=== PATIENT | female | born 1980 | race Two or more races ===

== ENCOUNTER 2018-10-24 15:20 | Inpatient (IN) | payer BC ==
[~2018-10-24] VITALS: Ht 160 cm; Wt 94.0 kg
[2018-10-24 16:11] LABS: Basophils # (auto) 0.1 uL; Basophils % (auto) 0.8 % (0.0-2.0); Eosinophils # (auto) 0.1 uL; Eosinophils % (auto) 0.9 % (0.0-7.0); Hematocrit 33.7 % (36.0-46.0); Hemoglobin 11.1 g/dL (12.2-16.2); Lymphocytes # (auto) 1.9 uL; Lymphocytes % (auto) 13.6 % (10.0-50.0); Mean Corpuscular Hemoglobin 27.4 pg (28.0-32.0); Mean Corpuscular Hgb Conc. 32.9 g/dL (32.0-36.0); Mean Corpuscular Volume 83.3 fL (80.0-100.0); Monocytes % (auto) 6.9 % (0.0-12.0); Neutrophils # (auto) 10.8 uL; Neutrophils % (auto) 77.8 % (37.0-80.0); Nucleated Red Blood Cells % 0.1 %; Platelet Count (auto) 323 10^3/uL (140-450); Red Blood Cells 4.05 10^6/uL (4.0-5.20); Red Cell Distribution Width 13.7 % (11.8-14.3); White Blood Cell 13.8 10^3/uL (4.4-10.8)
[2018-10-24 16:27] LABS: Alanine Aminotransferase 26 U/L (13-56); Albumin 2.9 g/dL (3.4-5.0); Anion Gap 9 (5-15); Aspartate Aminotransferase 6 U/L (15-37); BUN/Creatinine Ratio 20.6; Blood Urea Nitrogen 13 mg/dL (7-18); Calcium 8.4 mg/dL (8.5-10.1); Carbon Dioxide 20 mmol/L (21-32); Chloride 111 mmol/L (98-107); GFR African American 137 mL/min; GFR Non-African American 113 mL/min; Glucose 277 mg/dL (74-106); Potassium 3.9 mmol/L (3.5-5.1); Sodium 140 mmol/L (136-145)
[2018-10-24 16:32] LABS: Alkaline Phosphatase 104 U/L (45-117); Bilirubin, Total 1.2 mg/dL (0.2-1.0); Total Protein 6.5 g/dL (6.4-8.2)
[2018-10-24] MEDS ORDERED: PROMETHAZINE HCL 25 MG/ML 1ML IV ONE (17:45)
[2018-10-24] MEDS ORDERED: HYDROmorphone HCL 2 MG/ML VL IV ONE (17:45)
[2018-10-24] MEDS ORDERED: IOHEXOL 350 MG/ML 100ML IJ ONE (17:54)
[2018-10-24] MEDS ORDERED: ALBUTEROL SULF 2.5 MG/0.5ML(0.5%) NEB SOLN NEB ONE (20:45)
[2018-10-24] MEDS ORDERED: SODIUM CHLORIDE 0.9% 1,000 ML IV ONE (20:45)
[2018-10-24] MEDS ORDERED: IPRATROPIUM BROM 0.5 MG/2.5ML INH SOL NEB ONE (20:45)
[2018-10-24] MEDS ORDERED: MORPHINE SULF INJ 2 MG/ML SYRINGE 1ML IV PRN (22:30)
[2018-10-24] MEDS ORDERED: NITROGLYCERIN 0.4 MG SL TAB SL PRN (22:30)
[2018-10-24] MEDS ORDERED: ONDANSETRON HCL 4 MG/2 ML VIAL IV PRN (22:30)
[2018-10-24] MEDS ORDERED: DEXTROSE (50%) 50ML SYRG IV PRN (22:30)
[2018-10-24 22:49] VITALS: BP 128/83
[2018-10-24] MEDS ORDERED: HYDROcodone-ACET 5/325MG TAB ONE (23:25)
[2018-10-24] MEDS ORDERED: cefTRIAXone 1GM/50ML D5W 50 ML IV SCH (23:30)
[2018-10-24] MEDS ORDERED: cefTRIAXone 1GM/50ML D5W 50 ML IV ONE (23:43)
[2018-10-24] MEDS ORDERED: AZITHROMYCIN 500MG/ 250ML 250 ML IV ONE (23:56)
--- NOTE | 2018-10-25 01:00 | NUR ---
Telemetry admit from [facility] admitted to Telemetry unit. patient oriented to [place], primary RN, unit, room, bed, and unit policies regarding patient care and visiting hours. Patient now on continuous telemetry monitoring, tele box # [id number] and telemetry reading on arrival to unit is ST. Patient placed on bedside oxygen, weighed by bedscale and encouraged to call if they need something. All questions and concerns addressed, patient verbalized understanding.
[2018-10-25] MEDS: ACETYLCYSTEINE 20%(200MG/ML) SOL 4ML NEB SCH ×6 (02:00→23:21)
[2018-10-25] MEDS: ALBUTEROL SULF 2.5 MG/0.5ML(0.5%) NEB SOLN NEB SCH ×6 (02:00→23:21)
[2018-10-25] MEDS: IPRATROPIUM BROM 0.5 MG/2.5ML INH SOL NEB SCH ×6 (02:00→23:21)
[2018-10-25] MEDS ORDERED: ACETYLCYSTEINE 20%(200MG/ML) SOL 4ML ONE ×2 (02:43→05:19)
[2018-10-25] MEDS ORDERED: IPRATROPIUM BROM 0.5 MG/2.5ML INH SOL ONE ×2 (02:43→05:18)
[2018-10-25] MEDS ORDERED: ALBUTEROL SULF 2.5 MG/0.5ML(0.5%) NEB SOLN ONE ×2 (02:43→05:18)
--- NOTE | 2018-10-25 03:30 | NUR ---
WOUND PHOTOS TAKEN
[2018-10-25] MEDS ORDERED: ACCU-CHEK COMFORT CURVE STRIP VI SCH ×2 (07:00→12:00)
[2018-10-25] MEDS ORDERED: InsuLIN REG 1unit/0.01ml Soln (100units/ml) SC SCH ×2 (07:00→12:00)
--- NOTE | 2018-10-25 07:00 | NUR ---
Admission completed placed in hard chart.
[2018-10-25] MEDS: HYDROcodone-ACET 5/325MG TAB PO PRN ×3 (07:07→21:28)
[2018-10-25 07:13] LABS: BUN/Creatinine Ratio 14.3; Calcium 7.8 mg/dL (8.5-10.1)
--- NOTE | 2018-10-25 07:30 | NUR ---
Opening Shift Note Received report from Jaime VOGT. Assumed care of patient, awake and alert. No S/S of distress/SOB. Reported generalized pain. NOted accordion tubes attached to each groin, draining minimal amount of sanguinous fluid, noted some leaking. Noted 3 puncture wounds also on back with min-mod clear drainage. Instructed on POC and to call for assist PRN, will continue to monitor for changes Q1hr and PRN.
[2018-10-25 08:00] VITALS: BP 123/74
--- NOTE | 2018-10-25 08:25 | NUR ---
Dr. Brar at bedside. Pulmonology consult done. Received verbal order to educate patient on how to use incentive spirometry every 1-2 hours, and do percussion per RT protocol.
[2018-10-25 09:00] VITALS: BP 123/74
--- NOTE | 2018-10-25 09:24 | NUR ---
INSTRUCTED HOW TO USE INCENTIVE SPIROMETRY. PATIENT DID RETURN DEMONSTRATION.
[2018-10-25] MEDS ORDERED: AZITHROMYCIN 500MG/ 250ML 250 ML IV SCH (10:00)
--- NOTE | 2018-10-25 11:25 | NUR ---
WOUND CARE NOTE: Wound care in to see patient per wound care request regarding "surgical wounds" that are noted present on admission. Bedside nurse took photographs of patient's multiple surgical wounds upon admission for reference. Patient is 38 years old female with admitting diagnosis of Atelectasis and Partial Lung Collapse. Patient is sitting on a chair in Rm. 212A. She's awake, alert and oriented. Patient is in no stated pain at this time however, reports of mild pain when she moves. She's ambulatory and self turn and reposition. Her current Sar[place] score is 20. Skin assessment done with the assistance of patient's nurse, Amy. Patient came in with multiple surgical incision to L and Rt lateral hip and lower abdomen; puncture wound to lower back and Hemovac drains posterior lower back and groins draining serosanguineous drainage. Drainage insertion sites is sutured, with serosanguineous drainage coming out from sites whenever patient moves. Surgical incision has ecchymotic tomasa wound. Per bedside nurse reports, patient had liposuction and tummy tuck in [place]. Advised bedside nurse to cleansed patient's multiple wounds with wound cleanser, pat dry with sterile gauze, apply skin protectant to tomasa wound and cover wound and drain sites with sterile gauze or absorbent pad and secure dressing with Medipore tape. Patient tolerated skin/wound assessment well,left patient seated on chair with call salazar within reach. No further wound care monitoring needed at this time. RECOMMENDATION: Daily/PRN dressing change to multiple wounds per MD order, Dietary consult, redistribute pressure points with pillows. Addendum: 10/25/18 at 1804 by Marlen Montenegro RN Amended: Links added.
[2018-10-25 13:00] VITALS: BP 108/60
[2018-10-25] MEDS ORDERED: LIRA18IN2 SUBCUT (13:49)
[2018-10-25] MEDS ORDERED: NAPR375T27 PO (13:49)
[2018-10-25] MEDS ORDERED: METF-370 PO (13:49)
[2018-10-25 17:00] VITALS: BP 128/80
[2018-10-25] MEDS ORDERED: SODIUM CHLORIDE 0.9% 1,000 ML IV SCH (17:00)
[2018-10-25] MEDS ORDERED: MORPHINE SULFATE 4 MG/ML SYR/VIAL IV PRN (17:00)
[2018-10-25] MEDS ORDERED: SODIUM CHLORIDE 0.9% 1,000 ML IV ONE (17:00)
--- NOTE | 2018-10-25 17:00 | NUR ---
LISBET Nam at bedside.
[2018-10-25] MEDS ORDERED: DEXTROSE (50%) 50ML SYRG IV PRN (17:15)
[2018-10-25] MEDS: ACCU-CHEK COMFORT CURVE STRIP VI SCH (17:27)
[2018-10-25 17:28] LABS: Basophils # (auto) 0.1 uL; Basophils % (auto) 0.8 % (0.0-2.0); Eosinophils # (auto) 0.5 uL; Hematocrit 29.2 % (36.0-46.0); Hemoglobin 9.4 g/dL (12.2-16.2); Lymphocytes # (auto) 2.6 uL; Lymphocytes % (auto) 20.8 % (10.0-50.0); Mean Corpuscular Hemoglobin 27.4 pg (28.0-32.0); Mean Corpuscular Hgb Conc. 32.1 g/dL (32.0-36.0); Mean Corpuscular Volume 85.2 fL (80.0-100.0); Monocytes # (auto) 0.7 uL; Monocytes % (auto) 5.6 % (0.0-12.0); Neutrophils # (auto) 8.5 uL; Neutrophils % (auto) 68.8 % (37.0-80.0); Platelet Count (auto) 281 10^3/uL (140-450); Red Blood Cells 3.43 10^6/uL (4.0-5.20); Red Cell Distribution Width 14.1 % (11.8-14.3); White Blood Cell 12.4 10^3/uL (4.4-10.8)
--- NOTE | 2018-10-25 17:30 | NUR ---
TECH ASSISTED PATIENT BY WHEELCHAIR FOR CT SCAN OF ABDOMEN/PELVIS.
--- NOTE | 2018-10-25 18:00 | NUR ---
PATIENT IS BACK TO ROOM. CT SCAN OF ABD/PEL IS DONE.
--- NOTE | 2018-10-25 18:10 | NUR ---
NOTED PUNCTURE WOUNDS ON MEDIAL SACRUM AND BILATERAL GROINS DRAINING COPIOUS SEROSANGUINEOUS FLUID, DRESSINGS SOILED. CHANGED DRESSINGS ON SAID SITES WITH STERILE NS THEN PATTED DRY WITH STERILE GAUZE. COVERED EACH WITH ABD PAD. PATIENT TOLERATED WELL.
[2018-10-25] MEDS: InsuLIN REG 1unit/0.01ml Soln (100units/ml) SC SCH (18:19)
[2018-10-25 19:37] LABS: Hemoglobin 9.8 g/dL (12.2-16.2)
--- NOTE | 2018-10-25 21:15 | NUR ---
AMBULATED TO THE RESTROOM FOR VOIDING.
--- NOTE | 2018-10-25 21:28 | NUR ---
C/O GENERALIZED PAIN AND HEADACHE, SCALE 5/10, NORCO GIVEN PO ORDERED PRN. REST AND COMFORT PROVIDED.
[2018-10-25] MEDS: SOD CHL 0.45% 1,000 ML IV SCH (21:43)
--- NOTE | 2018-10-25 22:00 | NUR ---
ABLE TO USE INCENTIVE SPIROMETER AND REACHED ABOUT 1300ML LEVEL PER BREATHE.
[2018-10-25 22:30] VITALS: BP 138/84
--- NOTE | 2018-10-25 22:30 | NUR ---
DRESSING DRESSINGS IN BOTH GROINS AND SACRAL AREA WERE SOAKED, CHANGED DRESSING PER WOUND CARE PROTOCOL, OPTIFOAM DRESSINGS IN 3 SMALL INCISIONS AT THE BACK CHANGED. LINENS CHANGED.
[2018-10-26] MEDS: ACCU-CHEK COMFORT CURVE STRIP VI SCH ×5 (00:22→23:44)
[2018-10-26] MEDS: InsuLIN REG 1unit/0.01ml Soln (100units/ml) SC SCH ×5 (00:22→23:44)
[2018-10-26] MEDS: IPRATROPIUM BROM 0.5 MG/2.5ML INH SOL NEB SCH ×6 (02:19→22:23)
[2018-10-26] MEDS: ALBUTEROL SULF 2.5 MG/0.5ML(0.5%) NEB SOLN NEB SCH ×6 (02:19→22:23)
[2018-10-26] MEDS: ACETYLCYSTEINE 20%(200MG/ML) SOL 4ML NEB SCH ×6 (02:20→22:23)
[2018-10-26 05:00] VITALS: BP 131/81
--- NOTE | 2018-10-26 05:15 | NUR ---
AM CARE DONE, COMPLETE LINENS AND GOWN CHANGED. REPOSITIONED FOR COMFORT.
--- NOTE | 2018-10-26 05:30 | NUR ---
DRESSINGS IN BOTH GROINS AND SACRAL AREA CHANGED ASEPTICALLY PER WOUND CARE PROTOCOL. ABDOMINAL BINDER CHANGED.
[2018-10-26] MEDS: HYDROcodone-ACET 5/325MG TAB PO PRN ×3 (06:16→21:27)
[2018-10-26] MEDS: SOD CHL 0.45% 1,000 ML IV SCH ×2 (06:16→09:30)
[2018-10-26 06:55] LABS: Basophils # (auto) 0.1 uL; Basophils % (auto) 0.7 % (0.0-2.0); Eosinophils # (auto) 0.9 uL; Eosinophils % (auto) 8.5 % (0.0-7.0); Hematocrit 27.4 % (36.0-46.0); Hemoglobin 9.1 g/dL (12.2-16.2); Lymphocytes # (auto) 2.6 uL; Lymphocytes % (auto) 24.6 % (10.0-50.0); Mean Corpuscular Hemoglobin 27.9 pg (28.0-32.0); Mean Corpuscular Hgb Conc. 33.2 g/dL (32.0-36.0); Mean Corpuscular Volume 84.1 fL (80.0-100.0); Monocytes # (auto) 0.6 uL; Monocytes % (auto) 5.4 % (0.0-12.0); Neutrophils # (auto) 6.5 uL; Neutrophils % (auto) 60.8 % (37.0-80.0); Nucleated Red Blood Cells % 0.1 %; Platelet Count (auto) 311 10^3/uL (140-450); Red Blood Cells 3.25 10^6/uL (4.0-5.20); Red Cell Distribution Width 13.9 % (11.8-14.3); White Blood Cell 10.8 10^3/uL (4.4-10.8)
[2018-10-26 07:09] LABS: Potassium 3.5 mmol/L (3.5-5.1)
[2018-10-26 07:13] LABS: Albumin 2.4 g/dL (3.4-5.0); Calcium 8.1 mg/dL (8.5-10.1)
--- NOTE | 2018-10-26 07:14 | NUR ---
closing shift note Resting on bed with no signs of distress. Report given to Amy VOGT.
--- NOTE | 2018-10-26 07:15 | NUR ---
Opening Shift Note Received report from Kari VOGT. Assumed care of patient, asleep. No S/S of distress/SOB or pain. Noted dressings dry & intact on puncture wound sites. Placed call light within reach, kept 2 side rails up, will continue to monitor for changes Q1hr and PRN.
[2018-10-26 07:16] LABS: BUN/Creatinine Ratio 15.1
[2018-10-26 07:19] LABS: Bilirubin, Total 0.9 mg/dL (0.2-1.0); Total Protein 5.5 g/dL (6.4-8.2)
[2018-10-26 08:00] VITALS: BP 121/71
--- NOTE | 2018-10-26 08:47 | NUR ---
Dr. Brar at bedside. Pulmo consult ff up done.
[2018-10-26 09:00] VITALS: BP 121/71
[2018-10-26] MEDS: LEVOFLOXACIN 750MG 150 ML IV SCH (09:43)
--- NOTE | 2018-10-26 10:30 | NUR ---
IV removal NOted IV leaking. IV DC'd with clean sterile technique, catheter fully intact. Pressure dressing applied to site. Patient tolerated well.
--- NOTE | 2018-10-26 10:45 | NUR ---
Wound Care Wound care provided per MD order. Changed dressings on all punctures sites: bilateral groins, top medial sacrum, 2 upper sites on back, and medial back. Cleaned all with sterile NS then patted dry with sterile gauze. Applied sureprep then povidone iodine. Covered back puncture sites with optifoams. bilateral groins and top medial back sacrum with ABD pads. Secured each with extended tape. Patient tolerated well and verbalized dressing care instructions.
--- NOTE | 2018-10-26 11:00 | NUR ---
Dr. Lawrence at bedside.
[2018-10-26] MEDS ORDERED: FUROSEMIDE 20 MG/2 ML VIAL IV ONE (11:15)
[2018-10-26] MEDS ORDERED: POTASSIUM CHL 20 Meq TABLET PO ONE (11:15)
--- NOTE | 2018-10-26 11:15 | NUR ---
IV insertion New IV access obtained, via clean sterile technique by inserting gauge catheter 22 at left antecubital after 1 attempt. IV secured properly. No trauma to site. Patient tolerated well.
--- NOTE | 2018-10-26 12:23 | NUR ---
NUTRITION CONSULT/ASSESSMENT NOTES Please refer to link notes of nutrition screen form filed under the intervention section of the plan of care for further details. Est. Needs: 1400 kcal to 1850 kcal (15-20 kcal/kgBW), 74 gms to 93 gms pro (0.8-1.0 gms/kgBW). Will continue to monitor pertinent labs and reassess nutrient need prn Thank you for this consult. Addendum: 10/26/18 at [address] Amended: Links added.
[2018-10-26 13:00] VITALS: BP 128/73
--- NOTE | 2018-10-26 13:23 | NUR ---
Patient stated her pain level at 4/10 at this time, requested for [place]. [place] 5/325 PO given for pain.
--- NOTE | 2018-10-26 14:59 | NUR ---
NOTED RIGHT GROIN DRESSING SOILED. CLEANED WOUND AND CHANGED DRESSING. PATIENT TOLERATED WELL.
[2018-10-26 17:00] VITALS: BP 128/81
[2018-10-26] MEDS: metFORMIN HYDROCHLORIDE 500 MG TAB PO SCH (17:33)
--- NOTE | 2018-10-26 18:00 | NUR ---
NOTED SOILED DRESSING ON TOP MEDIAL SACRUM. CLEANED WOUND AND CHANGED DRESSING. PATIENT TOLERATED WELL.
--- NOTE | 2018-10-26 19:52 | NUR ---
RECEIVED PATIENT FROM DAY SHIFT RN. PATIENT RESTING IN BED. NO S/S OF DISTRESS NOTED. DENIED PAIN FOR NOW. STORY TELLER PATIENT TO BEDSIDE COMMODE. PATIENT TOLERATED WELL. POSITIONED PATIENT TO COMFORT. SCD IN PLACE. DRESSING ON BL GROINS AND BACK C/D/I AND DRAINING GRAVITY. ABD BINDER IN PLACE. POC INSTRUCTED AND ENCOURAGED PATIENT TO CALL FOR STORY TELLER IF NEEDED. BED IN LOWEST POSITION WITH SIDE RAILS UP X 2. CALL [place] WITHIN REACH. ALARM ON. CONTINUE TO MONITOR FOR CHANGES Q1H AND PRN.
[2018-10-26] MEDS: ASCORBIC ACID 500 MG TAB PO SCH (21:27)
[2018-10-26] MEDS ORDERED: Pro-Stat SF 30ml Vanilla PO SCH (22:00)
--- NOTE | 2018-10-26 22:02 | NUR ---
ASSISTED PATIENT TO BATHROOM, NO BM, BUT GAS. PATIENT TOLERATED WELL. NO S/S OF DISTRESS NOTED. CONTINUE CARE.
--- NOTE | 2018-10-26 22:37 | NUR ---
Respiratory note: PT STATES SHE DOES NOT WANT TO BE WOKEN UP FOR NEXT SCHEDULED MED NEB AT 0200. PT NOTIFIED TO CALL RT IF SOB OCCURS
[2018-10-26 23:09] VITALS: BP 117/70
--- NOTE | 2018-10-26 23:20 | NUR ---
DRESSING CHANGED ON RIGHT GROIN AND SACRUM AREA. PATIENT TOLERATED WELL. NO S/S OF DISTRESS NOTED. CONTINUE CARE.
--- NOTE | 2018-10-26 23:44 | NUR ---
ACCU-CHECK, BS 267. INSULIN GIVEN ORDERED. CONTINUE TO MONITOR.
[2018-10-27] MEDS: ACETYLCYSTEINE 20%(200MG/ML) SOL 4ML NEB SCH ×3 (00:03→09:51)
[2018-10-27] MEDS: ALBUTEROL SULF 2.5 MG/0.5ML(0.5%) NEB SOLN NEB SCH ×3 (00:03→09:50)
[2018-10-27] MEDS: IPRATROPIUM BROM 0.5 MG/2.5ML INH SOL NEB SCH ×3 (00:03→09:50)
--- NOTE | 2018-10-27 00:24 | NUR ---
REPORT GIVEN TO CELIA VOGT.
[2018-10-27] MEDS: HYDROcodone-ACET 5/325MG TAB PO PRN (04:31)
[2018-10-27 05:09] VITALS: BP 107/66
[2018-10-27] MEDS: InsuLIN REG 1unit/0.01ml Soln (100units/ml) SC SCH ×2 (05:28→12:00)
[2018-10-27] MEDS: ACCU-CHEK COMFORT CURVE STRIP VI SCH ×2 (05:28→12:00)
[2018-10-27] MEDS: metFORMIN HYDROCHLORIDE 500 MG TAB PO SCH (06:37)
[2018-10-27 06:38] LABS: Calcium 8.3 mg/dL (8.5-10.1); Potassium 3.5 mmol/L (3.5-5.1)
[2018-10-27 06:42] LABS: BUN/Creatinine Ratio 20.4
[2018-10-27 08:00] VITALS: BP 121/71
[2018-10-27 09:00] VITALS: BP 123/67
[2018-10-27] MEDS: ASCORBIC ACID 500 MG TAB PO SCH (09:14)
[2018-10-27] MEDS: LEVOFLOXACIN 750MG 150 ML IV SCH (09:14)
[2018-10-27] MEDS ORDERED: MULTIPLE VITAMINS W/ MINERALS TAB PO SCH (10:00)
[2018-10-27 12:55] VITALS: BP 121/71
[2018-10-27 13:00] VITALS: BP 110/69
== END 2018-10-27 14:00 | disposition home or self-care (01) | DRG 199 ==
LOC: ER 15:32 → TELE 22:44 → TELE-CENTR 22:51
PROVIDERS: ADMIT Hospitalist; ATTEND Internal Medicine
DX: T79.7XXA Traumatic subcutaneous emphysema, initial encounter (principal); J96.00 Acute respiratory failure, unspecified whether with hypoxia or hypercapnia; J98.19 Other pulmonary collapse; E44.0 Moderate protein-calorie malnutrition; E87.2 Acidosis; J98.11 Atelectasis; E86.0 Dehydration; E66.9 Obesity, unspecified; D72.829 Elevated white blood cell count, unspecified; E87.8 Other disorders of electrolyte and fluid balance, not elsewhere classified; E11.65 Type 2 diabetes mellitus with hyperglycemia; K76.0 Fatty (change of) liver, not elsewhere classified; K80.20 Calculus of gallbladder without cholecystitis without obstruction; X58.XXXA Exposure to other specified factors, initial encounter; Z68.36 Body mass index [BMI] 36.0-36.9, adult
CPT/HCPCS: 36415; 71045; 71275; 74176; 80048; 80053; 82962; 83036; 83605; 83735; 83880; 84484; 85014; 85018; 85025; 85379; 87040; 87081; 87205; 93005; 94640; 94668; 96361; 96374; 96375; G0378; J0696; J1815; J1956